=== PATIENT | male | born 1985 ===

== ENCOUNTER 2020-11-04 12:33 | Observation (INO) | payer OTHER, SELFPAY ==
[2020-11-04] VITALS (25 sets, daily range): BP systolic 108–162; BP diastolic 64–98; PULSE 62–122; RESP 8–25; TEMP 36.1–36.7; O2SAT 96–99; BMI 21.0
--- NOTE | 2020-11-04 12:53 | DI.RAD.S_ITS ---
PROCEDURE: XR CHEST 1V INDICATIONS: palpitations TECHNIQUE: One view of the chest was acquired. COMPARISON: None. FINDINGS: Surgical changes and devices: None. Lungs and pleura: Lungs are clear. No pleural effusions or pneumothorax. Mediastinum: Mediastinal contours appear normal. Heart size is normal. Bones and chest wall: No suspicious bony lesions. Overlying soft tissues appear unremarkable. IMPRESSION: No acute process. Dictated by: Ju Gaspar M.D. on 11/04/2020 at 12:14 Approved by: Ju Gaspar M.D. on 11/04/2020 at 12:14
--- NOTE | 2020-11-04 13:18 | ED_ITS ---
HPI - Arrhythmia/Palpitations General Chief Complaint: Arrhythmia/Palpitations Stated Complaint: Increased Heartrate/Pounding Time Seen by Provider: 11/04/20 12:40 Source: patient Mode of arrival: Ambulatory Limitations: no limitations History of Present Illness HPI narrative: 35-year-old male nonsmoker with a history of very mild pneumonia few months ago and of prior tachyarrhythmia presents with a chief complaint of about a week of palpitations and fatigue. He has had no fever or chills and denies use of street drugs. He does state that about a year ago he had some kind of rapid heart rate that required a monitor but no interventions or medications. He is not dizzy nor weak or lightheaded. He has had no nausea, vomiting or diarrhea. Related Data Allergies Allergy/AdvReac Type Severity Reaction Status Date / Time No Known Drug Allergies Allergy Verified 11/04/20 13:06 Review of Systems Review of Systems Narrative: GENERAL: Denies chills, fatigue, malaise, fever, sweats. HEENT: Denies sinus pain, ear pain, sore throat, difficulty swallowing, dizziness. RESPIRATORY: Denies dyspnea, cough, wheezing, hemoptysis, sputum. CARDIOVASCULAR: See HP GASTROINTESTINAL: Denies nausea, vomiting, abdominal pain, diarrhea, constipation, melena. : Denies dysuria, frequency, incontinence, hematuria, urinary retention. MUSCULOSKELETAL: denies weakness, joint pain, or bony pain SKIN: Denies rash, skin lesions, or other NEUROLOGIC: Denies weakness, headache, numbness, change in speech, confusion, seizures, incoordination. PSYCHIATRIC: No concerning psychosocial issues. 12 point review of systems is negative except for those stated above Patient History Social History Smoking Status: Never smoker Smoking Status: Never smoker alcohol intake frequency: 0-2 drinks per day Substance Use Type: marijuana Exam Narrative Exam Narrative: GENERAL: [35] year old patient appears stated age. Well- developed patient, in mild distress. HEAD: Atraumatic. Normocephalic. EYES: Pupils equal round and reactive. Extraocular motions intact. No scleral icterus. No injection or drainage. ENT: Nose without bleeding, purulent drainage. Throat without erythema, tonsillar hypertrophy or exudate. Airway patent. NECK: Trachea midline. Non tender CARDIOVASCULAR: Tachycardic and irregular rhythm without murmurs, gallops, or rubs. RESPIRATORY: Clear to auscultation. Breath sounds equal bilaterally. No wheezes, rales, or rhonchi. GASTROINTESTINAL: Abdomen soft, non-tender, nondistended. EXTREMITIES: No edema or joint tenderness. BACK: Nontender without deformity or crepitance. No flank tenderness. NEURO: AOx3. SKIN: No rash or erythema of visible areas Initial Vital Signs Initial Vital Signs: Vital Signs Temperature 97.7 F 11/04/20 12:40 Pulse Rate 95 H 11/04/20 12:40 Respiratory Rate 18 11/04/20 12:40 Blood Pressure 162/86 H 11/04/20 12:40 Pulse Oximetry 99 11/04/20 12:40 Course Course Course Narrative: Patient with rapid AFib that judging by history has been present for about 1 week. He is not a candidate for cardioversion. He is not in any extremities, not having chest pain shortness of breath and EKG does not demonstrate any ischemia. He is put on Cardizem and has appropriate response. Patient requires hospitalization for ongoing treatment stabilization Orders Ordered: ED Orders 11/04/20 12:53 XR chest 1V Stat EKG-12 Lead Stat 11/04/20 13:15 COVID19 -Nasal swab/Pre-Proc Stat Complete Blood Count AUTO DIFF Stat Comprehensive Metabolic Panel Stat Magnesium Stat Thyroid Stimulating Hormone Stat Troponin & CK Cardiac Panel Stat 11/04/20 14:06 COVID19 - ADMIT (ASSURANCE ANALYST swab/PCR) Stat Diltiazem HCl 125 mg/ Sodium (Chloride) 125 mls @ 5 mls/hr IV TITRATE ASHER; Protocol Last Admin: 11/04/20 13:54 Dose: 5 mg/hr, 5 mls/hr Documented by: ROSALINE Discontinued Medications Diltiazem HCl (Diltiazem 5 Mg/Ml Sdv) 20 mg IV NOW ONE Stop: 11/04/20 13:25 Last Admin: 11/04/20 13:53 Dose: 20 mg Documented by: ROSALINE Vital Signs Vital signs: Vital Signs - 8 hr 11/04/20 12:40 Temperature 97.7 F Pulse Rate 95 H Respiratory Rate 18 Blood Pressure 162/86 H Pulse Oximetry 99 MDM - Arrhythmia/Palpitations Lab Data Result diagrams: 11/04/20 13:15 11/04/20 13:15 Labs: Lab Results 11/04/20 11/04/20 11/04/20 Range/Units 13:15 13:15 13:15 WBC 7.9 (4.5-11.0) X10^3/uL RBC 5.10 (4.5-5.9) X10^6/uL Hgb 14.5 (13.5-17.5) g/dL Hct 43.5 (41-53) % MCV 85.4 (80-100) fL MCH 28.5 (26-34) PG MCHC 33.4 (30-36) % RDW 13.7 (11.6-14.8) % Plt Count 265 (150-400) X10^3/uL Neut % (Auto) 78.8 H (50-75) % Lymph % (Auto) 15.3 L (25-40) % [place] % (Auto) 5.0 (3-14) % Eos % (Auto) 0.4 L (2-4) % Baso % (Auto) 0.5 (0-2) % Neut # (Auto) 6200 (4857-9684) /uL Lymph # (Auto) 1200 (6852-5009) /uL [place] # (Auto) 400 (0-900) /uL Eos # (Auto) 0 (0-450) /uL Baso # (Auto) 0 (0-100) /uL Sodium 140 (137-145) mmol/L Potassium 4.1 (3.4-5.1) mmol/L Chloride 104 (98-107) mmol/L Carbon Dioxide 26 (22-32) mmol/L BUN 15 (9-20) mg/dL Creatinine 0.80 (0.66-1.25) mg/dL Estimated GFR > 60.0 (>60) mL/min BUN/Creatinine Ratio 18.8 (6-22) Glucose 125 H (70-100) mg/dL Calcium 9.9 (8.4-10.2) mg/dL Magnesium 1.9 (1.6-2.3) mg/dL Total Bilirubin 1.2 (0.2-1.3) mg/dL AST 35 (17-59) IU/L ALT 27 (<50) IU/L Alkaline Phosphatase 79 (38-126) U/L Total Creatine Kinase 198 H (55-170) U/L CK-MB (CK-2) 1.16 (<2.37) ng/mL CK-MB (CK-2) Rel Index 0.6 L (1.5-5.0) % Troponin I 0.019 (0.01-0.034) ng/mL Total Protein 8.3 H (6.3-8.2) g/dL Albumin 5.0 (3.5-5.0) g/dL Globulin 3.3 (1.7-4.1) g/dL Albumin/Globulin Ratio 1.5 (1.0-2.8) TSH 0.605 (0.47-4.68) uIU/mL SARS-CoV-2 (PCR) (Negative) 11/04/20 Range/Units 13:15 WBC (4.5-11.0) X10^3/uL RBC (4.5-5.9) X10^6/uL Hgb (13.5-17.5) g/dL Hct (41-53) % MCV (80-100) fL MCH (26-34) PG MCHC (30-36) % RDW (11.6-14.8) % Plt Count (150-400) X10^3/uL Neut % (Auto) (50-75) % Lymph % (Auto) (25-40) % [place] % (Auto) (3-14) % Eos % (Auto) (2-4) % Baso % (Auto) (0-2) % Neut # (Auto) (8663-8373) /uL Lymph # (Auto) (8094-7866) /uL [place] # (Auto) (0-900) /uL Eos # (Auto) (0-450) /uL Baso # (Auto) (0-100) /uL Sodium (137-145) mmol/L Potassium (3.4-5.1) mmol/L Chloride (98-107) mmol/L Carbon Dioxide (22-32) mmol/L BUN (9-20) mg/dL Creatinine (0.66-1.25) mg/dL Estimated GFR (>60) mL/min BUN/Creatinine Ratio (6-22) Glucose (70-100) mg/dL Calcium (8.4-10.2) mg/dL Magnesium (1.6-2.3) mg/dL Total Bilirubin (0.2-1.3) mg/dL AST (17-59) IU/L ALT (<50) IU/L Alkaline Phosphatase (38-126) U/L Total Creatine Kinase (55-170) U/L CK-MB (CK-2) (<2.37) ng/mL CK-MB (CK-2) Rel Index (1.5-5.0) % Troponin I (0.01-0.034) ng/mL Total Protein (6.3-8.2) g/dL Albumin (3.5-5.0) g/dL Globulin (1.7-4.1) g/dL Albumin/Globulin Ratio (1.0-2.8) TSH (0.47-4.68) uIU/mL SARS-CoV-2 (PCR) Negative (Negative) ECG Data Interpretation: Rapid AFib in the 120 is without signs of ischemia Discharge Plan Departure Patient Disposition: Admitted As Inpatient Clinical Impression: Atrial fibrillation Admit Date/Time: 11/04/20 14:50 Admit Provider: Donnie Sandoval
[2020-11-04 13:28] LABS: Add Manual Diff / Slide Review NO; Basophils Absolute Auto 0 /uL (0-100); Basophils Percent Auto 0.5 % (0-2); Eosinophils Absolute Auto 0 /uL (0-450); Eosinophils Percent Auto 0.4 % (2-4); Hematocrit 43.5 % (41-53); Hemoglobin 14.5 g/dL (13.5-17.5); Lymphocytes Absolute Auto 1200 /uL (1100-4500); Lymphocytes Percent Auto 15.3 % (25-40); Mean Corpuscular HGB Conc 33.4 % (30-36); Mean Corpuscular Hemoglobin 28.5 PG (26-34); Mean Corpuscular Volume 85.4 fL (80-100); Monocytes Absolute Auto 400 /uL (0-900); Neutrophils Absolute Auto 6200 /uL (1500-7000); Neutrophils Percent Auto 78.8 % (50-75); Platelet Count 265 X10^3/uL (150-400); Red Cell Distribution Width 13.7 % (11.6-14.8); White Blood Cell Count 7.9 X10^3/uL (4.5-11.0)
[2020-11-04 13:37] LABS: Alanine Aminotransferase 27 IU/L (<50); Albumin Globulin Ratio 1.5 (1.0-2.8); Alkaline Phosphatase 79 U/L (38-126); Aspartate Aminotransferase 35 IU/L (17-59); BUN Creatinine Ratio 18.8 (6-22); Bilirubin Total 1.2 mg/dL (0.2-1.3); Blood Urea Nitrogen 15 mg/dL (9-20); Calcium 9.9 mg/dL (8.4-10.2); Carbon Dioxide 26 mmol/L (22-32); Chloride 104 mmol/L (98-107); Creatine Kinase 198 U/L (55-170); Estimated Glomerular Filt Rate > 60.0 mL/min (>60); Globulin 3.3 g/dL (1.7-4.1); Glucose 125 mg/dL (70-100); HEMOLYSIS 16 (0-50); Magnesium 1.9 mg/dL (1.6-2.3); Potassium 4.1 mmol/L (3.4-5.1); Sodium 140 mmol/L (137-145); Total Protein 8.3 g/dL (6.3-8.2)
[2020-11-04 13:48] LABS: Troponin I 0.019 ng/mL (0.01-0.034)
[2020-11-04 13:52] LABS: CKMB % Relative Index 0.6 % (1.5-5.0); Creatine Kinase MB 1.16 ng/mL (<2.37)
[2020-11-04] MEDS: dilTIAZem 5 MG/ML SDV 20 MG IV (13:53)
[2020-11-04] MEDS: dilTIAZem 125 MG in SODIUM CHLORIDE 0.9% 100 ML IV (13:54)
[2020-11-04 14:14] LABS: COVID19 -Nasal RAPID Negative (Negative)
[2020-11-04 14:38] LABS: Thyroid Stimulating Hormone 0.605 uIU/mL (0.47-4.68)
[2020-11-04] MEDS: METOPROLOL IR 25 MG TABLET PO ×2 (15:16→18:03)
[2020-11-04 15:24] LABS: COVID19 - ADMIT (NP swab/PCR) Negative (Negative)
--- NOTE | 2020-11-04 16:28 | PM.HP.1 ---
History of Present Illness History of Present Illness Chief complaint: Increased Heartrate/Pounding Narrative: The patient is a 35 y/o male with a history of GERD, Asthma,recent Covid infection ( 2 months ago) history of palpitations that was evaluated by an event monitor about one year ago. At that time he was not given a definite diagnosis and his symptoms resolved. About one week ago the patient noted some chest pain with intermittent palpitations. At the time he did not relate the chest pain to the palpitations. He was on a boat today, shrimp, when he developed nausea/vomiting and significant palpitations. Patient felt his heart rate was very fast and requested to come off the boat. He called [facility] and was directed to come to the hospital. Patient was evaluated in the hospital and found to be in rapid atrial fibrillation.He was started on a cardizem drip with improvement of his heart rate. He denies any shortness of breath, he has no current chest pain, he has no hemetemsis, melena, or bright red blood per rectum. He drinks 1-2 hard ciders daily, but has never had alcohol withdrawal. He quit drinking for 30 days last month without incident. He does use marijuana regularly but no other drugs. He lost 13 pounds when infected with Covid 2 months ago. Patient is admitted to the hospital for Atrial Fibrillation with Rapid Ventricular Response. Patient History Medical History (Updated 11/04/20 @ 16:34 by Jayne Sherman MD) Asthma COVID-19 GERD (gastroesophageal reflux disease) Family & Social History Family History (Updated 11/04/20 @ 16:34 by Jayne Sherman MD) Father Suicide Safety & Behavioral: Feels Safe in Current Yes Environment Been Physically Hurt or No Threatened By a Person Tobacco & Substance use: Smoking Status Never smoker alcohol intake frequency 0-2 drinks per day Substance Use Type marijuana Meds Home Medications and Allergies Allergies Allergy/AdvReac Type Severity Reaction Status Date / Time No Known Drug Allergies Allergy Verified 11/04/20 13:06 Review of Systems Review of Systems Narrative: 10 point review of system is negative except as above Exam Vital Signs (past 8 hours): - 11/04/20 12:40 Temperature 97.7 F Pulse Rate 95 H Respiratory Rate 18 Blood Pressure 162/86 H Pulse Oximetry 99 Oxygen Delivery Method Room Air Narrative Exam Narrative: Pleasant Male lying in bed in no obvious distress HENMT Other: NC/At, Sclera anicteric, Eomi intact, oropharynx clean Neck Other: Supple, no adenopathy, no thyromegaly Resp Other: Clear to auscultation Cardio Other: Tachycardic, irregularly, irregular, nl S1 S2 GI Other: Soft/ non tender/ non distended, no hepatosplenomegaly Skin Other: no edmea Neuro Other: Non focal Psych Other: awake, alert, and appropriate no hallucinations , delusions, or tics Objective Labs Result Diagrams: 11/04/20 13:15 11/04/20 13:15 Labs: Laboratory Results - last 24 hr 11/04/20 11/04/20 11/04/20 13:15 13:15 13:15 WBC 7.9 RBC 5.10 Hgb 14.5 Hct 43.5 MCV 85.4 MCH 28.5 MCHC 33.4 RDW 13.7 Plt Count 265 Neut % (Auto) 78.8 H Lymph % (Auto) 15.3 L [place] % (Auto) 5.0 Eos % (Auto) 0.4 L Baso % (Auto) 0.5 Neut # (Auto) 6200 Lymph # (Auto) 1200 [place] # (Auto) 400 Eos # (Auto) 0 Baso # (Auto) 0 Sodium 140 Potassium 4.1 Chloride 104 Carbon Dioxide 26 BUN 15 Creatinine 0.80 Estimated GFR > 60.0 BUN/Creatinine Ratio 18.8 Glucose 125 H Calcium 9.9 Magnesium 1.9 Total Bilirubin 1.2 AST 35 ALT 27 Alkaline Phosphatase 79 Total Creatine Kinase 198 H CK-MB (CK-2) 1.16 CK-MB (CK-2) Rel Index 0.6 L Troponin I 0.019 Total Protein 8.3 H Albumin 5.0 Globulin 3.3 Albumin/Globulin Ratio 1.5 TSH 0.605 SARS-CoV-2 (PCR) 11/04/20 11/04/20 13:15 14:06 WBC RBC Hgb Hct MCV MCH MCHC RDW Plt Count Neut % (Auto) Lymph % (Auto) [place] % (Auto) Eos % (Auto) Baso % (Auto) Neut # (Auto) Lymph # (Auto) [place] # (Auto) Eos # (Auto) Baso # (Auto) Sodium Potassium Chloride Carbon Dioxide BUN Creatinine Estimated GFR BUN/Creatinine Ratio Glucose Calcium Magnesium Total Bilirubin AST ALT Alkaline Phosphatase Total Creatine Kinase CK-MB (CK-2) CK-MB (CK-2) Rel Index Troponin I Total Protein Albumin Globulin Albumin/Globulin Ratio TSH SARS-CoV-2 (PCR) Negative Negative Assessment & Plan Assessment & Plan narrative: 35 y/o male admitted to the hospital with Atrial Fibrillation with Rapid Ventricular Response Per history, patient may have had paroxsymal atrial fibrillation No evidence of Hyperthyroidism, doubt Etoh is contributing EKG reveals rapid afib , HR now 90's-100s on diltiazem drip Troponin I negative Chest Xray negative Will start metoprolol 25 mg every six hours Taper cardizem drip off Echo to evaluate LV function Patient has no history of CHF, Hypertension, and based on age, if echo negative he may have lone afib He may not require anticoagulation For now, will start ASA daily, await echo, control rate with Metoprolol IF he remains in Afib would refer to Cardiology for outpatient follow up-He may be a candidate for ablative therapy. GERD- continue BID PPI Asthma-prn inhaler as needed Patient's is his surrogate decision maker, he is a full code I have utilized all resources to verify medications and agree with medication reconcillation as presented.
[2020-11-04] MEDS: ASPIRIN 325 MG TABLET PO (21:39)
[2020-11-04] MEDS: PANTOPRAZOLE DR 40 MG TABLET PO (21:39)
--- NOTE | 2020-11-04 22:21 | PC.NURSE ---
evening shift note. pt AO and receptive to care. SO in room. Arrived via ER approximately 1645. Tele placed and reading Afib, heart health diet. IND in room. Right AC PIV placed in ER. Reporting no symptoms like he experienced earlier in the day (which brought him to the ER- heart palpitations and coughing). pt states he had something similar to this happen about a year ago but he was told that since he was young he shouldn't worry about it.
[2020-11-05] MEDS: METOPROLOL IR 25 MG TABLET PO (00:14)
[2020-11-05 05:52] VITALS: BP 107/60; PULSE 50; RESP 16; TEMP 36.1; O2SAT 100
[2020-11-05] MEDS: PANTOPRAZOLE DR 40 MG TABLET PO (07:16)
[2020-11-05 10:00] VITALS: BP 122/88; PULSE 78; RESP 15; TEMP 36.7; O2SAT 100
[2020-11-05] MEDS: ENOXAPARIN 40 MG/0.4 ML SYRINGE SUBCUT (10:05)
[2020-11-05] MEDS: ASPIRIN 325 MG TABLET PO (10:05)
[2020-11-05] MEDS: METOPROLOL IR 25 MG TABLET 12.5 MG PO (10:06)
[2020-11-05 10:41] VITALS: RESP 16; O2SAT 99
--- NOTE | 2020-11-05 10:45 | CM.DANOTE ---
DCP: Case received, EMR reviewed and met with patient. , Nayeli, was at bedside. Introduced self and role. Was able to obtain information regarding patient's baseline activity and some health information prior to hospitalization. DCP assessment completed with information currently available. Patient is a 35 year old male who admitted yesterday afternoon to the care of the hospitalist team. PCP: Dr. Kaye. Payer: confirmed: [facility]. Patient came to the hospital via private vehicle secondary to having increased pounding heart beat. Patient holds current diagnosis of rapid a-fib. Patient has had history of pneumonia, as well as tachyarrhythmias. Patient is not a candidate for cardioversion, and is receiving diltiazem here at the hospital. Patient also had COVID approximately 2 months ago. Met with patient and . He is independent, and lives with his spouse in [place]. He mentioned, he has had these type of heart issues before, but not like this. P: Patient is to be discharged home today, but will be having an echo. He will also be referred to cardiology. Rosaura Nielsen RN/[employer]
[2020-11-05 13:14] VITALS: BP 120/78; PULSE 75; RESP 16; TEMP 36.8; O2SAT 100
[2020-11-05 13:24] VITALS: BP 130/73; PULSE 69
[2020-11-05] MEDS: METOPROLOL ER 25 MG TABLET PO (13:24)
--- NOTE | 2020-11-05 14:36 | PC.NURSE ---
Spontaneous convertion to sinus rhythm on telemetry noted at [address] Sandoval notified. Patient up ad jayden in room, remains without complaints. Awaiting ECHo test and discharge to home pending results. Patient able to make his needs known. Call light within reach.
[2020-11-05 15:40] VITALS: BP 118/70; PULSE 73; RESP 16; TEMP 36.3; O2SAT 98
--- NOTE | 2020-11-05 16:26 | DI.ECHO.S_ITS ---
[place]---------+ [facility] +---------+ : : [address] : : : : [id number] : : : : Phone: [phone]+ Echocardiogram Report + + :Name: RAMIREZ EPSTEIN Study Date: 11/05/2020 Height: 74 in : :[facility] ReadingLocation: Weight: 164 lb : : Gender: Male BSA: 2.0 m2 : :: 1985 Age: 35 yrs BP: 120/78 mmHg: :Reason For Study: Atrial fibrillation : :Ordering Physician: Jyoti : :Hospitalist Performed By: Alanna Le : :Referring: ROX MADERA : + + Interpretation Summary The left ventricle is normal in size and wall thickness. Left ventricular systolic function appears normal without focal wall motion abnormalities. The ejection fraction is estimated to be 50-55%. Diastolic parameters suggest probable normal left ventricular diastolic function and normal filling pressures. The right ventricle is normal in size and function. The right ventricular systolic pressure is estimated to be at least 25 mmHg based on an estimated right atrial pressure of 8 mm Hg. Both atria are normal in size. There is no significant valvular heart disease. The aortic root is normal size. Procedure: A two-dimensional transthoracic echocardiogram with color flow and Doppler was performed. The study quality was technically adequate. There is no prior echocardiogram noted for this patient. The patient was in normal sinus rhythm during the exam. Left Ventricle: The left ventricle is normal in size and wall thickness. There is no ventricular septal defect visualized. Left ventricular systolic function appears normal without focal wall motion abnormalities. The ejection fraction is estimated to be 50-55%. Diastolic parameters suggest probable normal left ventricular diastolic function and normal filling pressures. Right Ventricle: The right ventricle is normal in size and function. Atria: Both atria are normal in size. There is no Doppler evidence for an interatrial shunt. Mitral Valve: The mitral valve is normal in structure and function. There is trace mitral regurgitation. Aortic Valve: The aortic valve is normal in structure and function. No aortic regurgitation is present. Tricuspid Valve: The tricuspid valve is normal in structure and function. There is a trace or physiologic amount of tricuspid regurgitation. The right ventricular systolic pressure is estimated to be at least 25 mmHg based on an estimated right atrial pressure of 8 mm Hg. Pulmonic Valve: The pulmonic valve leaflets are thin and pliable; valve motion is normal. There is no pulmonic valvular regurgitation. There is no significant valvular heart disease. Great Vessels: The aortic root is normal size. The ascending aorta is normal in size. The aortic arch could not be visualized. The IVC is of normal diameter and collapses less than 50% with a sniff. This suggests a right atrial pressure of 8 mm Hg. Pericardium/ Pleura There is no pericardial effusion. MMode/2D Measurements & Calculations LVIDd: 4.7 cm LVOT diam: 2.3 cm LVIDs: 3.7 cm Ao root diam: 3.0 cm FS: 21.9 % asc Aorta Diam: 2.5 cm EPSS: 0.23 cm IVSd: 0.75 cm LVPWd: 0.66 cm LV swanson. diameter/BSA (cm/m^2): 2.4 LV sys. diameter/BSA (cm/m^2): 1.8 LA A2 area: 19.7 cm2 RA long axis: 4.5 cm LA A4 area: 17.6 cm2 RA area: 15.1 cm2 LA length (vol): 5.3 cm RA vol: 43.3 ml LA vol: 55.6 ml RA : 21.7 ml/m2 LA vol index: 27.9 ml/m2 IVC diam: 1.6 cm RVD1 (basal): 3.8 cm TAPSE: 2.0 cm Doppler Measurements & Calculations Ao V2 max: 90.1 cm/sec LVOT Max Scott: 59.6 cm/sec Ao V2 mean: 62.5 cm/sec LV V1 max P.4 mmHg Ao max P.2 mmHg LV V1 VTI: 10.0 cm Ao mean P.7 mmHg EDUARDO(I,D): 2.6 cm2 Ao V2 VTI: 15.6 cm EDUARDO(V,D): 2.7 cm2 sev ratio: 0.64 EDUARDO indexed to BSA (cm^2/m^2): 1.3 MV E max scott: 52.7 cm/sec TR max scott: 206.1 cm/sec MV A max scott: 32.3 cm/sec TR max P.0 mmHg MV E/A: 1.6 PA V2 max: 74.5 cm/sec Med Peak E' Scott: 8.8 cm/sec PA V2 mean: 50.3 cm/sec E/E' med: 6.0 PA mean P.2 mmHg Lat Peak E' Scott: 11.5 cm/sec PA pr(Accel): 45.6 mmHg E/E' lat: 4.6 E/e' average: 5.3 MV dec time: 0.24 sec SV(LVOT): 40.9 ml Reading Physician:05:17 PM
--- NOTE | 2020-11-05 18:25 | PC.NURSE ---
Discharge Note- Patient discharged home per hospitist orders. Discharge instructions and education reviewed with patient and signed. IV line removed and bandage applied. Tele monitor removed. Patient dressed self and packed up all personal belongings. Patient left via wheelchair with all personal belongings with to private car at 1805.
--- NOTE | 2020-11-06 15:53 | PM.DS.1 ---
History of Present Illness History of Present Illness Chief complaint: Increased Heartrate/Pounding Narrative: The patient is a 35 y/o male with a history of GERD, Asthma,recent Covid infection ( 2 months ago) history of palpitations that was evaluated by an event monitor about one year ago. At that time he was not given a definite diagnosis and his symptoms resolved. About one week ago the patient noted some chest pain with intermittent palpitations. At the time he did not relate the chest pain to the palpitations. He was on a boat today, , when he developed nausea/vomiting and significant palpitations. Patient felt his heart rate was very fast and requested to come off the boat. He called [facility] and was directed to come to the hospital. Patient was evaluated in the hospital and found to be in rapid atrial fibrillation.He was started on a cardizem drip with improvement of his heart rate. He denies any shortness of breath, he has no current chest pain, he has no hemetemsis, melena, or bright red blood per rectum. He drinks 1-2 hard ciders daily, but has never had alcohol withdrawal. He quit drinking for 30 days last month without incident. He does use marijuana regularly but no other drugs. He lost 13 pounds when infected with Covid 2 months ago. Patient is admitted to the hospital for Atrial Fibrillation with Rapid Ventricular Response. Discharge Providers Provider Date of admission: 11/04/20 14:50 Discharge Date: 11/06/20 Primary care physician: Kalani Kaye PA-C Discharge provider: Dnonie Sandoval MD Summary Hospital Course Discharge Diagnosis: 1. Atrial fibrillation with RVR 2. GERD 3. ASthma Hospital Course: Mr. Gil was admitted with palpitations, nausea/vomiting. He was found to be in atrial fibrillation with RVR. He had been having palpitations for about a week. His heart rate improved with diltiazem IV and then he was transitioned to oral metoprolol. He actually became slightly bradycardic and then converted to sinus rhythm before discharge. His CHADSVASC 2 was 0, so he was not started on anticoagulation. He was discharged with long acting metoprolol. He has had tachyarrhythmia in the past and he was referred to a fluorescent lamp replacer to consider further workup such as possibly ablation in the future. Exam Vital Signs (past 8 hours): Oxygen Delivery Method Room Air Oxygen Flow Rate 0 Narrative Exam Narrative: GEN: NAD CV: regular rate and rhythm, no murmurs GI: Soft, non tender, non distended, no hepatosplenomegaly PULM: clear bilaterally Objective Labs Result Diagrams: 11/04/20 13:15 11/04/20 13:15 [facility] Medical History (Updated 11/04/20 @ 16:34 by Jayne Sherman MD) Asthma COVID-19 GERD (gastroesophageal reflux disease) Family History (Updated 11/04/20 @ 16:34 by Jayne Sherman MD) Father Suicide Social History household members: spouse Smoking Status: Never smoker Discharge Plan Discharge Plan Patient Disposition: Home Provider Discharge Comment: Mr. Gil was admitted with fast heart rate and abnormal heart rhythm (atrial fibrillation). He had his heart rate slowed to normal with a medication called metoprolol. However, he remained in the abnormal heart rhythm. He will be referred to a fluorescent lamp replacer to monitor this and consider other medications or procedures to treat his condition. Discharge orders & Medications Prescriptions: New metoprolol succinate 50 mg tablet extended release 24 hr 50 mg PO DAILY Qty: 30 RF: 0 Continued Prilosec 20 mg capsule 20 mg PO 1-2XD RF: 0 Follow up/Referrals: Manuel Swartz MD [Physician] - (35M new dx of afib rvr) Kalani Kaye PA-C [Primary Care Provider] - Diet/Activity/Treatments Diet: Regular Visit Report/Discharge Packet Instructions: DI for Atrial Fibrillation, Metoprolol Discharge Data Primary Care Provider: Kalani Kaye Attending Provider: Donnie Sandoval [facility] The patient has current or prior documentation of left ventricular ejection fraction (LVEF) less than 40%, or moderate or severely depressed left ventricular systolic function.: No
== END 2020-11-05 18:05 | disposition home or self-care (01) ==
LOC: ED 12:48 → AC 15:01
PROVIDERS: Admitting Provider Internal Medicine; Emergency Provider Emergency Medicine; PCP Physician Assistant Medical; Referring Provider Emergency Medicine; Visit Provider Internal Medicine
DX: I48.91 Unspecified atrial fibrillation (principal); R53.83 Other fatigue; Z86.16 Personal history of COVID-19; K21.9 Gastro-esophageal reflux disease without esophagitis; J45.909 Unspecified asthma, uncomplicated; Z20.822 Contact with and (suspected) exposure to COVID-19
CPT/HCPCS: 36415; 71045; 80053; 82550; 82553; 83735; 84443; 84484; 85025; 87635; 93005; 93306; 96365; 96366; 96372; 96375; 99284; C9803; G0378; J1650

== ENCOUNTER 2020-12-07 18:53 | Emergency (ER) | payer OTHER, MEDICAID, SELFPAY ==
[2020-12-07 19:07] VITALS: BP 126/84; PULSE 80; RESP 14; TEMP 36.6; O2SAT 98; BMI 21.2
[2020-12-07] MEDS: LIDO 1%/SOD BICARB 8.4% (10ML) 10 ML SYRINGE INJ (21:00)
[2020-12-07] MEDS: cephALEXin 250 MG PREPACK 1 BOTTLE MISC (21:00)
--- NOTE | 2020-12-07 21:13 | ED_ITS ---
HPI - Wound/Laceration General Chief Complaint: Wound/Laceration Stated Complaint: lt ear injury Time Seen by Provider: 12/07/20 20:43 Source: patient Mode of arrival: Ambulatory Limitations: no limitations History of Present Illness HPI narrative: 35-year-old male nonsmoker with history of hypertension presents with his significant other and a chief complaint of an accidental injury to the posterior aspect of his left ear. 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 He denies any headache, blurred vision or trouble hearing. He has a painful wound behind his ear. Tetanus will need to be updated. He denies any numbness, tingling or weakness. Related Data Home Medications Medication Instructions Recorded Confirmed Prilosec 20 mg PO 1-2XD 11/04/20 11/04/20 Previous Rx's Medication Instructions Recorded metoprolol succinate 50 mg 50 mg PO DAILY #30 tab 11/05/20 tablet,extended release 24 hr cephalexin 500 mg capsule 500 mg PO Q6H 7 Days #28 cap 12/07/20 Allergies Allergy/AdvReac Type Severity Reaction Status Date / Time No Known Drug Allergies Allergy Verified 12/07/20 19:07 Review of Systems Review of Systems Narrative: GENERAL: Denies chills, fatigue, malaise, fever, sweats. HEENT: Denies sinus pain, ear pain, sore throat, difficulty swallowing, dizziness. RESPIRATORY: Denies dyspnea, cough, wheezing, hemoptysis, sputum. CARDIOVASCULAR: Denies chest pain, palpitations, orthopnea, edema, GASTROINTESTINAL: Denies nausea, vomiting, abdominal pain, diarrhea, constipation, melena. : Denies dysuria, frequency, incontinence, hematuria, urinary retention. MUSCULOSKELETAL: denies weakness, joint pain, or bony pain SKIN: See HPI NEUROLOGIC: Denies weakness, headache, numbness, change in speech, confusion, seizures, incoordination. PSYCHIATRIC: No concerning psychosocial issues. 12 point review of systems is negative except for those stated above Patient History Medical History Asthma COVID-19 GERD (gastroesophageal reflux disease) Family History Father Suicide Social History household members: spouse Smoking Status: Never smoker Smoking Status: Never smoker alcohol intake frequency: 3 or more drinks per day Substance Use Type: marijuana Exam Narrative Exam Narrative: GEN: AOx3 and in mild distress EYES: Pupils are equal, round, and reactive to light and accommodation. Extraoccular muscles are intact bilaterally. There is no subconjunctival hemorrhage or exudate. CHEST: Lungs are clear to auscultation bilaterally and free of wheezes, rales, or rhonchi. Heart rate is regular rhythm, there are no murmurs, clicks, rubs, or gallops. There is no chest wall tenderness. ABD: Abdomen is soft and nontender. There is no guarding or rebound. Bowel sounds are normal in all 4 quadrants. There is no mass or organomegaly. EXT: Full painless ROM of all extremities with no loss of sensation or strength. SKIN: 0.5cm laceration posterior to left ear at lateral skull. No foreign body. Minimal active bleeding. No cartilage involvement. Warm, pink, and dry. No erythema or rash Initial Vital Signs Initial Vital Signs: Vital Signs Temperature 97.8 F 12/07/20 19:07 Pulse Rate 80 12/07/20 19:07 Respiratory Rate 14 12/07/20 19:07 Blood Pressure 126/84 12/07/20 19:07 Pulse Oximetry 98 12/07/20 19:07 Procedures Laceration Repair Laceration 1: Site: scalp (at junction of left external ear) Size (cm): 0.5 Description: linear Depth: simple, single layer Local Anesthetic: lidocaine 1% and with bicarb Amount of anesthesia used (mL): 3 Pre-repair: wound explored and irrigated extensively Skin layer closed with: nylon Size (cm): 5-0 Number of sutures: 3 Technique: simple, interrupted Course Orders Ordered: Discontinued Medications Cefazolin Sodium (Cephalexin 250 Mg Prepack) 1 bottle MISC SEEINSTR ONE Stop: 12/07/20 20:48 Last Admin: 12/07/20 21:00 Dose: 1 dose Documented by: ATAYLOR Lidocaine/Sodium Bicarbonate (Lido 1%/Sod Bicarb 8.4% (10ml) 10 Ml Syringe) 10 ml INJ NOW ONE Stop: 12/07/20 20:48 Last Admin: 12/07/20 21:00 Dose: 10 ml Documented by: FRANCY Vital Signs Vital signs: Vital Signs - 8 hr 12/07/20 21:15 Pulse Rate 72 Respiratory Rate 16 Blood Pressure 137/86 Pulse Oximetry 98 Discharge Plan Departure Patient Disposition: Home Clinical Impression: Complex laceration of left ear Qualifiers: Encounter type: initial encounter Qualified Code(s): S01.312A - Laceration without foreign body of left ear, initial encounter Instructions: DI for Laceration Repair Activity Restrictions/Additional Instructions: *You have been diagnosed with [left posterior ear laceration *What to do: *Please continue to take your regular medications as directed. [ x] New medication prescriptions sent to your pharmacy: [[facility]] [ ] New medication written as a paper prescription [ ] No new medications given * Please keep the wound clean and dry to the best of your ability. Please monitor for signs of infection such as redness to the skin or increasing pain. Have the sutures removed by your doctor in about 7 days. If you are unable to get into your doctor, we would be happy to remove the sutures in that same timeframe. *If you do not have a primary care provider please contact the [facility] Resource line at [phone]. They will ask some questions about your medical history and help get you set up with a doctor in the community. *Return to Emergency Department if you should have any new, worsening or concerning symptoms, such as [fever greater than 101 F, shaking chills, worsening pain, persistent vomiting or other bothersome symptoms] Prescriptions: New cephalexin 500 mg capsule 500 mg PO Q6H 7 Days Qty: 28 RF: 0 No Action Prilosec 20 mg capsule 20 mg PO 1-2XD RF: 0 metoprolol succinate 50 mg tablet extended release 24 hr 50 mg PO DAILY Qty: 30 RF: 0 Referrals: Kalani Kaye PA-C [Primary Care Provider] -
[2020-12-07 21:15] VITALS: BP 137/86; PULSE 72; RESP 16; O2SAT 98
== END 2020-12-07 21:15 | disposition home or self-care (01) ==
PROVIDERS: Emergency Provider Emergency Medicine; PCP Physician Assistant Medical
DX: S01.312A Laceration without foreign body of left ear, initial encounter (principal); W19.XXXA Unspecified fall, initial encounter
CPT/HCPCS: 12001; 99283